=== PATIENT | male | born 1950 | race Caucasian/White ===

== ENCOUNTER 2018-07-16 04:36 | Inpatient (IN) | payer OTHER, MEDICARE ==
[~2018-07-16] VITALS: Ht 182.9 cm; Wt 122.0 kg
[2018-07-16 04:37] VITALS: BP 140/104
[2018-07-16] MEDS ORDERED: TRAMADOL 50 MG50 MG PO (04:50)
[2018-07-16] MEDS ORDERED: LASIX 40 MG TAB40 M2 PO (04:51)
[2018-07-16] MEDS ORDERED: TOPROL XL100 MG PO (04:52)
[2018-07-16] MEDS ORDERED: FLEXERIL PO (04:52)
[2018-07-16] MEDS ORDERED: QUINAPRIL 20 MG20 MG PO (04:53)
[2018-07-16] MEDS ORDERED: CRESTOR40 MG PO (04:53)
[2018-07-16] MEDS ORDERED: XARELTO20 MG PO (04:54)
[2018-07-16] MEDS ORDERED: ASPIR 8181 MG (04:55)
[2018-07-16 05:07] LABS: ABSOLUTE EOSINOPHILS 0.1 thou/uL (0.0-0.7); ABSOLUTE LYMPHOCYTES 2.2 thou/uL (0.8-5.3); ABSOLUTE MONOCYTES 0.3 thou/uL (0.0-1.2); ABSOLUTE NEUTROPHILS 6.6 thou/uL (1.6-8.1); BASOPHILS 0.5 %; EOSINOPHILS 1.5 %; HEMOGLOBIN 16.4 gm/dL (14.0-18.0); LYMPHOCYTES 23.4 %; MCH 31.5 pg (26.0-34.0); MCHC 34.2 g/dL (28.0-37.0); MONOCYTES 3.6 %; MPV 8.1 fl. (7.2-11.1); NUCLEATED RBCS 0 /100WBC; PLATELET COUNT* 212 thou/uL (150-400); RBC 5.22 mil/uL (4.50-6.00); RDW-CV 14.7 % (10.5-14.5); WBC 9.2 thou/uL (4.0-11.0)
[2018-07-16 05:19] LABS: INR 1.4; PROTIME 14.4 Seconds (9.20-11.50)
[2018-07-16 05:31] LABS: CALCIUM 9.1 mg/dL (8.5-10.1); CREATININE 1.5 mg/dL (0.6-1.3); POTASSIUM 3.6 mmol/L (3.5-5.1); TROPONIN-I LEVEL 0.09 ng/mL (<0.06)
[2018-07-16 05:35] LABS: ALBUMIN 3.3 g/dL (3.4-5.0); TOTAL BILIRUBIN 1.2 mg/dL (<0.1-1.0); TOTAL PROTEIN 6.8 g/dL (6.4-8.2)
[2018-07-16 08:37] LABS: URINE BILIRUBIN NEGATIVE (Negative); URINE BLOOD 1+ (Negative); URINE CLARITY CLEAR; URINE COLOR YELLOW; URINE GLUCOSE-RANDOM TRACE (Negative); URINE KETONES NEGATIVE (Negative); URINE LEUKOCYTES-REFLEX NEGATIVE (Negative); URINE NITRITE-REFLEX NEGATIVE (Negative); URINE PROTEIN 2+ (Negative); URINE SPECIFIC GRAVITY 1.025 (1.005-1.030); URINE UROBILINOGEN 0.2 E.U./dl (0.2-1.0)
[2018-07-16 08:50] LABS: SQUAMOUS 0-3 Few /LPF (0-3)
[2018-07-16 08:51] LABS: BACTERIA-REFLEX 1-9 Few /HPF (None Seen); CRYSTALS None Seen /LPF (None Seen); URINE RBC 3-10 Few /HPF (0-2); URINE WBC-REFLEX None Seen /HPF (0-5)
[2018-07-16 08:52] LABS: HYALINE CASTS 4-10 Moderate /LPF (None Seen); MUCUS 4-6 Moderate strn/LPF (None Seen)
[2018-07-16 10:00] VITALS: BP 132/78
[2018-07-16 10:15] VITALS: BP 133/115
[2018-07-16 12:00] VITALS: BP 127/74
--- NOTE | 2018-07-16 13:55 | EKG ---
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 : 1950 Requested By: Alma Corey Order Number: [id number] MD: Gerry Brandt Measurements Intervals [place] Rate: 129 P: 0 KS: 111 QRS: 88 QRSD: 165 T: 208 QT: 365 QTc: 535 Interpretive Statements atrial fibrillation LBBB Baseline wander in lead(s) V2 No previous ECG available for comparison Electronically Signed On 07-16-2018 13:54:57 CDT by Gerry Brandt [email or web address] <ELECTRONICALLY SIGNED> By: Gerry Brandt MD, [facility] 07/16/18 1354 0443 0443 Gerry Brandt MD, [facility] /EPI
--- NOTE | 2018-07-16 13:56 | EKG ---
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
[2018-07-16 16:00] VITALS: BP 128/89
[2018-07-16 20:00] VITALS: BP 130/85; BP 132/85
[2018-07-17] VITALS (14 sets, daily range): BP systolic 91–155; BP diastolic 67–106
[2018-07-17 04:53] LABS: ANION GAP 7 mmol/L (7-16); BUN 23 mg/dL (7-18); CALCIUM 8.3 mg/dL (8.5-10.1); CHLORIDE 104 mmol/L (98-107); CHOLESTEROL 92 mg/dL (<200); CO2 28 mmol/L (21-32); CREATININE 1.1 mg/dL (0.6-1.3); GLUCOSE 130 mg/dL (70-99); HDL CHOLESTEROL 30 mg/dL (>40); LDL CHOLESTEROL 48 mg/dL (<100); POTASSIUM 3.9 mmol/L (3.5-5.1); SODIUM 139 mmol/L (136-145); TC:HDL 3.1 Ratio (Not establshd); TRIGLYCERIDE 73 mg/dL (<150); VLDL 15 mg/dL (<40)
[2018-07-17 04:55] LABS: SERUM ASSESSMENT Clear
[2018-07-17 04:58] LABS: TROPONIN-I LEVEL 2.25 ng/mL (<0.06)
--- NOTE | 2018-07-17 13:22 | EKG ---
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: : 1950 Requested By: Gerry Brandt Order Number: [id number] Irais MD: Gerry Brandt Measurements Intervals [place] Rate: 99 P: PA: QRS: 73 QRSD: 174 T: 210 QT: 429 QTc: 551 Interpretive Statements Atrial fibrillation LBBB Prolonged QT interval Compared to ECG 07/16/2018 05:40:25 Ventricular premature complex(es) no longer present Electronically Signed On 07-17-2018 13:22:26 CDT by Gerry Brandt [email or web address] <ELECTRONICALLY SIGNED> By: Gerry Brandt MD, [facility] 07/17/18 1322 1027 1027 Gerry Brandt MD, [facility] /EPI
--- NOTE | 2018-07-17 17:41 | CARD ---
[address] [address] CARDIAC CATH REPORT Name: JOLENE RIGGS Room: [address] IN [facility]#: [id number] Admission: 07/16/18 Attend Phys: Augusto Guthrie, Discharge: Date of : 50 Report #: [id number] THIS REPORT FOR: //name// APPROVED REPORT Study performed: 07/17/2018 07:47:41 Patient Details Patient Status: In-Patient Room #: 215 The patient is a 67 year-old male Event Personnel Gerry Brandt Head Of Digital Advertising & Integration, Dayanara Nuñez RN Airplane Tube Builder, Lan Monahan (R) Monitor, Rolo Elam SUPERINTENDENT WATER [employer] SEW[employer] SYSTEMS Scrub Procedures Performed BALWINDER Place w/wo Plasty Single LAD Indication Non-STEMI , Atrial fibrillation, Dyspnea, Cardiomyopathy Risk Factors Tobacco History () Admission/Lab Medications/Medications given during procedure Glycoprotein IllbIlla Inhibitors, Heparin Unfract. Procedure Narrative The patient was brought electively to the Cardiac Catheterization Laboratory and was prepped and draped in a sterile manner. The right wrist was infiltrated with 1% Lidocaine subcutaneous anesthesia. A Slender Glidesheath sheath was inserted into the right radial artery. Coronary angiography was performed using coronary diagnostic catheters. The right coronary system was accessed and visualized with a Diagnostic JR4 catheter. The left coronary system was accessed and visualized with a Diagnostic JL 5 catheter. The left ventricle was accessed and visualized with a Diagnostic Angled Pigtail catheter. Left ventricular/Aortic Valve gradient assessed via catheter pullback. Left ventriculogram was performed in VERDIN projection. Closure device was deployed with a 6 Fr Vasc-Band Lng 27cm. The patient tolerated the procedure well and there were no complications [place] [address] CARDIAC CATH REPORT Name: JOLENE RIGGS LULY Room: [address]#: [id number] Admission: 07/16/18 Attend Phys: Augusto Guthrie, Discharge: Date of : 50 Report #: [id number] Intraoperative Conscious Sedation Sedation start time: 8:53 Case end Time: 9:37 Versed 2 mg Fluoro Time: 7.7 minutes Dose: DAP 250267 cGycm2 2259 mGy Contrast Type and Amount: Omnipaque 200 ml Coronary Angiography The patient's coronary anatomy is right dominant. Diagnostic Cath Left Main 0% stenosis LAD 80% proximal stenosis Circumflex 0% stenosis Right Coronary 50% distal stenosis noted Left Ventriculography The left ventricular ejection fraction is estimated to be 15-20%. There is 1+ mitral insufficiency. Hemodynamics The aortic pressure is 111/79 mmHg with a mean of 95 mmHg. The left ventricular pressure is 119/20 mmHg with a mean of mmHg. The left ventricular end diastolic pressure is 22 mmHg. Pullback from the left ventricle to the aorta revealed no gradient across the aortic valve. PCI Technique Lesion Anticoagulation was achieved with Heparin. bolus of iv aggrastat given Percutaneous coronary intervention was performed on the proximal left anterior descending artery segment. The lesion stenosis prior to intervention was 80% with MABEL 3 flow. A XB LAD 4.5 Guide Catheter was used to engage the lm ostium. A IG: BMW 190cm Interventional Guidewire was used to cross the lesion. BALLOON DILATION A Balloon catheter Trek RX 2.5 X 8 was inserted and inflated up to 18.00atm for 20seconds. Repeat angiography revealed the following post-dilatation results: 50% stenosis. STENT DEPLOYMENT A drug-eluting stent Xience Loree 3.0X12mm was inserted and inflated up to 12.00atm for 16seconds. Repeat angiography revealed the following post-stent deployment results: 0% [place] [address] CARDIAC CATH REPORT Name: JOLENE RIGGS LULY Room: [address]#: [id number] Admission: 07/16/18 Attend Phys: Augusto Guthrie, Discharge: Date of : 50 Report #: [id number] Inflation: 18.00atm for 18seconds. Additional Inflation: 20.00atm for 16seconds. Final angiography reveals 0 % stenosis with MABEL 3 flow. Conclusion 1. cad manifested by a 80% stenosis of the proximal lad and 50% stenosis of the distal rca 2. dilated cardiomyopathy with LVEF of less than 20% stenosis 3. permenent atrial fibrillation 4. successful placement of a drug eluting stent in the proximal lad Recommendations ICD placement Medications Administered Clopidogrel <ELECTRONICALLY SIGNED> By: Gerry Brandt MD, [facility] 07/17/18 174 174 1741Dpatrick Brandt MD, FAC /INF
[2018-07-18] VITALS (8 sets, daily range): BP systolic 102–151; BP diastolic 53–84
[2018-07-18 04:36] LABS: HEMATOCRIT 47.4 % (42.0-52.0); HEMOGLOBIN 15.9 gm/dL (14.0-18.0); MCH 30.6 pg (26.0-34.0); MCHC 33.6 g/dL (28.0-37.0); MCV 91.1 fL (80.0-100.0); MPV 8.7 fl. (7.2-11.1); NUCLEATED RBCS 0 /100WBC; PLATELET COUNT* 194 thou/uL (150-400); RDW-CV 14.5 % (10.5-14.5); WBC 10.7 thou/uL (4.0-11.0)
[2018-07-18 05:36] LABS: CALCIUM 9.2 mg/dL (8.5-10.1); CREATININE 0.9 mg/dL (0.6-1.3); POTASSIUM 3.8 mmol/L (3.5-5.1)
[2018-07-18 05:41] LABS: TROPONIN-I LEVEL 0.99 ng/mL (<0.06)
[2018-07-18 05:58] LABS: ABSOLUTE LYMPHOCYTES 1.1 thou/uL (0.8-5.3); ABSOLUTE NEUTROPHILS 9.6 thou/uL (1.6-8.1); PLATELET ESTIMATE ADEQUATE
[2018-07-18 05:59] LABS: ANISOCYTOSIS 1+; POIKILOCYTOSIS 1+; TOXIC GRANULATION Occasional
[2018-07-18] MEDS ORDERED: METFORMIN HCL500 MG PO (15:36)
[2018-07-18] MEDS ORDERED: NITROGLYCERIN0.4 MG SUBLING (15:37)
[2018-07-18] MEDS ORDERED: PLAVIX 75 MG TA75 M1 PO (15:38)
[2018-07-18] MEDS ORDERED: DIGOXIN125 MCG PO (15:41)
[2018-07-18] MEDS ORDERED: SPIRONOLACTONE25 MG PO (15:42)
--- NOTE | 2018-07-18 15:55 | EKG ---
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: : 1950 Requested By: Gerry Brandt Order Number: [id number] Irais MD: Juan Alberto Kaye Measurements Intervals [place] Rate: 100 P: ME: QRS: 90 QRSD: 176 T: 228 QT: 430 QTc: 555 Interpretive Statements Atrial fibrillation Left bundle-branch block Prolonged QT interval Baseline wander in lead(s) V4 Compared to ECG 07/17/2018 10:27:42 No significant changes noted Electronically Signed On 07-18-2018 15:55:04 CDT by Juan Alberto Kaye [email or web address] <ELECTRONICALLY SIGNED> By: Juan Alberto Kaye MD, [facility] 07/18/18 1555 0851 0851 Juan Alberto Kaye MD, [facility] /EPI
--- NOTE | 2018-07-18 17:25 | CON ---
[address] [address] CONSULTATION Name: ONEILJOLENESTACEY MAURICIO Room: [address] IN M.R.#: [id number] Admission: 07/16/18 Attend Phys: Augusto Guthrie, Discharge: Date of : 50 Report #: [id number] THIS REPORT FOR: //name// CC: [facility] physician/PCP Augusto Guthrie DATE OF SERVICE: 07/16/2018 HISTORY OF PRESENT ILLNESS: The patient is a 67-year-old white male who I was asked to see in the hospital today after he complained of being short of breath. No old records are available. The history is obtained from the patient and spouse was present. The patient states that back in 2009, he was short of breath. He was admitted to [facility]. He apparently was found to have atrial fibrillation and converted to sinus rhythm. He was placed on his current medications discharge. He has done well since that time. He apparently has had a stress test in the past. He has been followed by police records clerk at [facility]. He notes recently, he has had some back discomfort and bloating. He has had some increased shortness of breath. He actually went to the Emergency Room at [facility] five days ago and was sent home. He has an appointment to see his police records clerk later this month. However, last night, he had increasing shortness of breath. He has noticed some edema. He has been waking up at night short of breath. He does have a chronic cough. It is worse recently. No fever. His noticed that he was ashen last night and called the ambulance. He was diaphoretic. He was brought here to [facility]. Chest x-ray showed evidence of congestive heart failure. He was in atrial fibrillation and I was asked to see him for further evaluation and treatment. He denies any history of myocardial infarction, chest pain, palpitations, syncope, medical noncompliance. PAST MEDICAL HISTORY: He has had appendectomy. He has had his teeth removed. He has hypertension, hyperlipidemia, glucose intolerance. He used to be on metformin. CURRENT MEDICATIONS: Consist of metoprolol succinate 150 mg a day, quinapril 20 mg a day, aspirin 81 mg a day. He recently started on Xarelto 20 mg a day, furosemide 20 mg a day, Crestor 40 mg a day. ALLERGIES: He has no known drug allergies. FAMILY HISTORY: His mother and brother had heart disease. SOCIAL HISTORY: He is . He and his lived in [place]. 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 He smokes half pack of cigarettes a day. No alcohol abuse. REVIEW OF SYSTEMS: He is a large male, being 6 feet tall, 270 pounds. [place] [address] CONSULTATION Name: JOLENE RIGGS Room: [address] IN [facility]#: [id number] Admission: 07/16/18 Attend Phys: Augusto Guthrie, Discharge: Date of : 50 Report #: [id number] snore at night. He has a chronic cough. No history of bleeding, liver disease. He has had a kidney cyst in the past. No cancer. No psychiatric illness. PHYSICAL EXAMINATION: GENERAL: Revealed a large middle-aged male, lying in bed. He appeared in no acute distress. VITAL SIGNS: Blood pressure 130/80, pulse was initially 150. He is afebrile. HEENT: He is anicteric. Conjunctivae pink. Mucous membranes are moist. NECK: Veins nondistended. No carotid bruits. CHEST: Clear to auscultation. CARDIAC: Irregular rhythm. ABDOMEN: Obese. EXTREMITIES: Had no pitting edema. SKIN: Cool and dry. NEUROLOGIC: Nonfocal. LYMPHATIC: No adenopathy. MUSCULOSKELETAL: No joint effusion. RADIOLOGICAL DATA: His ECG on admission appeared to show atrial fibrillation with a left bundle branch block. His workup in the Emergency Room last night, he had a portable chest x-ray that showed cardiomegaly, pulmonary edema. LABORATORY WORK: Sodium 140, BUN 21, creatinine 1.5, glucose 271, SGOT 43, bilirubin 1.2, alkaline phosphate 72, SGPT 75, albumin 3.3. Troponin is 1.58. BNP 7524. White blood cell count 9.2, hemoglobin 16.4. IMPRESSION AND RECOMMENDATIONS: 1. Paroxysmal atrial fibrillation. Recommend checking thyroid function studies. The patient has a previous history of atrial fibrillation. At this time, I would switch the patient from metoprolol to sotalol. If he fails to convert, he might require cardioversion. I would continue anticoagulation with Xarelto. 2. Non-ST elevation myocardial infarction, possibly related to rapid atrial fibrillation. Consider cardiac catheterization in the future. 3. Hyperlipidemia. 4. Hypertension. The patient on a beta tino and CHRISTINA inhibitor. 5. Glucose intolerance. The patient has been on metformin in the past. 6. Tobacco abuse. 7. Chronic bronchitis. 8. Snoring at night. I would consider sleep apnea. <ELECTRONICALLY SIGNED> By: Gerry Brandt MD, [facility] 07/18/18 1725 1124 [id number] Carmencita Brandt MD, FACC /nt
[2018-07-19 04:00] VITALS: BP 108/58
[2018-07-19 08:00] VITALS: BP 116/84
[2018-07-19 10:12] LABS: INFLUENZA A ANTIGEN n (None Detect); INFLUENZA B ANTIGEN n (None Detect)
[2018-07-19 12:00] VITALS: BP 120/81
== END 2018-07-19 16:08 | disposition home or self-care (01) | DRG 246 ==
LOC: M.ERS 04:36 → M.TBA-ER 05:37 → M.2W 05:37
PROVIDERS: Emergency Medicine; Internal Medicine Cardiovascular Disease; ADMIT Family Medicine
PROC: B2111ZZ Fluoroscopy of Multiple Coronary Arteries using Low Osmolar Contrast (ICD-10-PCS; principal; 2018-07-17)
PROC: 027034Z Dilation of Coronary Artery, One Artery with Drug-eluting Intraluminal Device, Percutaneous Approach (ICD-10-PCS; principal; 2018-07-17)
PROC: 4A023N7 Measurement of Cardiac Sampling and Pressure, Left Heart, Percutaneous Approach (ICD-10-PCS; principal; 2018-07-17)
PROC: B2151ZZ Fluoroscopy of Left Heart using Low Osmolar Contrast (ICD-10-PCS; principal; 2018-07-17)
DX: I21.4 Non-ST elevation (NSTEMI) myocardial infarction (principal); J96.01 Acute respiratory failure with hypoxia; I42.0 Dilated cardiomyopathy; I25.10 Atherosclerotic heart disease of native coronary artery without angina pectoris; I10 Essential (primary) hypertension; E78.5 Hyperlipidemia, unspecified; I48.2 Chronic atrial fibrillation; E11.9 Type 2 diabetes mellitus without complications; J44.9 Chronic obstructive pulmonary disease, unspecified; F17.210 Nicotine dependence, cigarettes, uncomplicated; Z90.49 Acquired absence of other specified parts of digestive tract; Z79.01 Long term (current) use of anticoagulants; Z79.82 Long term (current) use of aspirin; Z79.899 Other long term (current) drug therapy; Z82.49 Family history of ischemic heart disease and other diseases of the circulatory system

== ENCOUNTER → 2018-08-10 | Outpatient (CLI) | payer OTHER, MEDICARE ==
[~2018-08-10] MED LIST: ASPIR 8181 MG; CRESTOR40 MG PO; DIGOXIN125 MCG PO; FLEXERIL PO; LASIX 40 MG TAB40 M2 PO; METFORMIN HCL500 MG PO; NITROGLYCERIN0.4 MG SUBLING; PLAVIX 75 MG TA75 M1 PO; QUINAPRIL 20 MG20 MG PO; SPIRONOLACTONE25 MG PO; TOPROL XL100 MG PO; TRAMADOL 50 MG50 MG PO; XARELTO20 MG PO
== END ==
LOC: M.LAB 11:32
DX: I48.2 Chronic atrial fibrillation (principal)

== ENCOUNTER → 2018-09-11 | Outpatient (CLI) | payer OTHER, MEDICARE ==
--- NOTE | 2018-09-11 16:37 | 2DMMODE ---
[place] [address] 2 D/M-MODE ECHOCARDIOGRAM Name: JOLENE RIGGS Room: [facility]#: [id number] Admission: 09/11/18 Attend Phys: Gerry Brandt MD Discharge: Date of : 50 Date of Service: 09/11/18 1637 Report #: [id number] THIS REPORT FOR: //name// APPROVED REPORT Study performed: 09/11/2018 14:06:21 EXAM: Comprehensive 2D, Doppler, and color-flow Echocardiogram Patient Location: Out-Patient BSA: 2.33 HR: 63 bpm BP: 106/72 mmHg Other Information Study Quality: Good Indications Cardiomyopathy 2D Dimensions IVSd: 14.37 (7-11mm) LVOT Diam: 20.72 (18-24mm) LVDd: 62.49 mm PWd: 11.95 (7-11mm) Ascending Ao: 35.24 (22-36mm) LVDs: 53.22 (25-40mm) Aortic Root: 37.32 mm Volumes Left Atrial Volume (Systole) LA ESV Index: 35.30 mL/m2 Aortic Valve AoV Peak Boo.: 2.68 m/s AO Peak Gr.: 28.66 mmHg LVOT Max P.17 mmHg AO Mean Gr.: 16.77 mmHg LVOT Mean P.65 mmHg LVOT Max V: 0.89 m/s AO V2 VTI: 50.80 cm LVOT Mean V: 0.59 m/s [place] (VTI): 1.09 cm2 LVOT V1 VTI: 16.37 cm AI Bureau: 1.87 m/s2 AI PHT: 663.62 ms Mitral Valve MV Decel. Time: 211.34 ms MV PHT: 61.29 ms MVA (PHT): 3.59 cm2 [place] [address] 2 D/M-MODE ECHOCARDIOGRAM Name: JOLENE RIGGS Room: [facility]#: [id number] Admission: 09/11/18 Attend Phys: Gerry Brandt MD Discharge: Date of : 50 Date of Service: 09/11/18 1637 Report #: [id number] TDI Medial E' Boo.: 0.07 m/s Lateral E' Boo.: 0.10 m/s Pulmonary Valve PV Peak Boo.: 1.33 m/s PV Peak Gr.: 7.03 mmHg Tricuspid Valve RAP Estimate: 5.00 mmHg TR Peak Gr.: 21.68 mmHg RVSP: 26.68 mmHg PA Pressure: 26.68 mmHg Left Ventricle Left ventricle is borderline dilated. There are segmental wall motion abnormalities with distal septal and anteroapical hypokinesis and inferobasilar akinesis. There is normal left ventricular wall thickness. Left ventricular systolic function is moderately decreased. LVEF is 40%. This study is not technically sufficient to allow evaluation of the LV diastolic function due to atrial fibrillation. Right Ventricle The right ventricle is normal size. The right ventricular systolic function is normal. Atria Left atrium is mildly dilated. The right atrium size is normal. Aortic Valve Moderate aortic valve sclerosis. Moderate aortic regurgitation. Mild to moderate aortic stenosis. Mitral Valve Mild mitral annular calcification. Mild mitral regurgitation. No evidence of mitral valve stenosis. Tricuspid Valve The tricuspid valve is normal in structure. Mild tricuspid regurgitation. Pulmonic Valve The pulmonary valve is normal in structure. Mild [place]mon[place] [address] 2 D/M-MODE ECHOCARDIOGRAM Name: JOLENE RIGGS LULY Room: [facility]#: [id number] Admission: 09/11/18 Attend Phys: Gerry Brandt MD Discharge: Date of : 50 Date of Service: 09/11/18 1637 Report #: [id number] Great Vessels The aortic root is normal in size. IVC is normal in size and collapses >50% with inspiration. Pericardium There is no pericardial effusion. <Conclusion> Left ventricle is borderline dilated. There is normal left ventricular wall thickness. Left ventricular systolic function is moderately decreased. LVEF is 40%. The right ventricle is normal size. Left atrium is mildly dilated. Moderate aortic valve sclerosis. Moderate aortic regurgitation. Mild to moderate aortic stenosis. Mild mitral annular calcification. Mild mitral regurgitation. The tricuspid valve is normal in structure. IVC is normal in size and collapses >50% with inspiration. There is no pericardial effusion. There are segmental wall motion abnormalities with distal septal and anteroapical hypokinesis and inferobasilar akinesis. <ELECTRONICALLY SIGNED> By: Hakeem Palacios MD, [facility] 09/11/18 1637 1637 163 Hakeem Palacios MD, FAC /INF
== END ==
LOC: M.CRD 13:48
DX: I08.8 Other rheumatic multiple valve diseases (principal)

== ENCOUNTER 2018-09-17 08:35 | Inpatient (IN) | payer OTHER, MEDICARE ==
[~2018-09-17] VITALS: Ht 182.9 cm; Wt 118.0 kg
[2018-09-17 08:38] VITALS: BP 140/87
[2018-09-17 09:01] LABS: ABSOLUTE EOSINOPHILS 0.2 thou/uL (0.0-0.7); ABSOLUTE LYMPHOCYTES 2.2 thou/uL (0.8-5.3); ABSOLUTE MONOCYTES 0.4 thou/uL (0.0-1.2); ABSOLUTE NEUTROPHILS 3.4 thou/uL (1.6-8.1); BASOPHILS 0.5 %; EOSINOPHILS 2.6 %; HEMATOCRIT 46.7 % (42.0-52.0); LYMPHOCYTES 35.6 %; MCHC 34.1 g/dL (28.0-37.0); MCV 90.7 fL (80.0-100.0); MPV 8.2 fl. (7.2-11.1); NUCLEATED RBCS 0 /100WBC; PLATELET COUNT* 200 thou/uL (150-400); POLYS 55.3 %; RBC 5.15 mil/uL (4.50-6.00); RDW-CV 15.1 % (10.5-14.5); WBC 6.1 thou/uL (4.0-11.0)
[2018-09-17 09:33] LABS: ANION GAP 13 mmol/L (7-16); BUN 14 mg/dL (7-18); CALCIUM 8.5 mg/dL (8.5-10.1); CHLORIDE 105 mmol/L (98-107); CO2 25 mmol/L (21-32); CREATININE 0.9 mg/dL (0.6-1.3); GLUCOSE 166 mg/dL (70-99); POTASSIUM 4.1 mmol/L (3.5-5.1); SODIUM 143 mmol/L (136-145)
[2018-09-17 09:43] LABS: ALBUMIN 3.6 g/dL (3.4-5.0); ALKALINE PHOSPHATASE 72 U/L (46-116); LIPASE 308 U/L (73-393); NT-PRO BRAIN NAT PEPTIDE 1690 pg/mL (<300); SGOT 15 U/L (15-37); SGPT 27 U/L (30-65); TOTAL BILIRUBIN 0.6 mg/dL (<0.1-1.0); TOTAL PROTEIN 7.1 g/dL (6.4-8.2); TROPONIN-I LEVEL <0.06 ng/mL (<0.06)
[2018-09-17 14:44] VITALS: BP 121/60
[2018-09-17 15:31] VITALS: BP 138/56
--- NOTE | 2018-09-17 18:03 | NUR ---
ASSUMED PT CARE AT 1500. PT FROM ER. AOX4, UP AD ESTHER, O2 SAT 90'S RA. ADMISSION ASSESSMENT DONE. TELE IN PLACED. TRACING AFIB, KATERIN ON TELE. EKG DONE. HEART RATE GOES ON 30'S- 60'S. PT CAME FOR EXTERNAL DEFIB GOING OFF. PT HAS R AC IV SL INTACT. VSS, ASSESSMENT CHARTED. HOURLY ROUNDING. GET SITUATED TO ROOM. CALL LIGHT WITHIN REACH. WILL CONTINUE TO MONITOR.
[2018-09-17 20:00] VITALS: BP 122/61
[2018-09-18] VITALS: BP 101/32; BP 133/53
[2018-09-18 04:00] VITALS: BP 110/50; BP 111/54
[2018-09-18 05:32] LABS: ABSOLUTE EOSINOPHILS 0.2 thou/uL (0.0-0.7); ABSOLUTE LYMPHOCYTES 2.5 thou/uL (0.8-5.3); ABSOLUTE MONOCYTES 0.5 thou/uL (0.0-1.2); BASOPHILS 0.4 %; EOSINOPHILS 2.8 %; HEMATOCRIT 43.2 % (42.0-52.0); HEMOGLOBIN 14.8 gm/dL (14.0-18.0); LYMPHOCYTES 40.1 %; MCH 31.4 pg (26.0-34.0); MCHC 34.3 g/dL (28.0-37.0); MCV 91.5 fL (80.0-100.0); MONOCYTES 8.2 %; MPV 8.3 fl. (7.2-11.1); NUCLEATED RBCS 0 /100WBC; PLATELET COUNT* 168 thou/uL (150-400); POLYS 48.5 %; RBC 4.72 mil/uL (4.50-6.00); RDW-CV 14.8 % (10.5-14.5); WBC 6.2 thou/uL (4.0-11.0)
[2018-09-18 05:36] LABS: CALCIUM 8.6 mg/dL (8.5-10.1); CREATININE 0.9 mg/dL (0.6-1.3); MAGNESIUM 2.2 mg/dL (1.8-2.4); POTASSIUM 4.3 mmol/L (3.5-5.1)
--- NOTE | 2018-09-18 05:44 | NUR ---
ASSUMED CARE OF PT AFTER REPORT AT 1930. PT A&OX4. VSS. PHYSICAL ASSESSMENT COMPLETED AND CHARTED. PT ON RA. PT TRACING AFIB/AFLUTTER/PVC ON TELE. PT HR 30'S-50'S. PT UPADLIB TO RESTROOM. PT DENIES ANY PAIN OR DISCOMFORT. PT RESTED WELL ON BED. CALL LIGHT WITHIN REACH.
--- NOTE | 2018-09-18 09:40 | CON ---
[address] [address] CONSULTATION Name: JOLENE RIGGS Room: [address] M.R.#: [id number] Admission: 09/17/18 Attend Phys: Brandyn Wild MD Discharge: Date of : 50 Report #: [id number] THIS REPORT FOR: //name// CC: Rolo Seth Mouse DO Gerry Brandt MD [facility] Brandyn Wild CARDIOLOGY CONSULTATION INDICATION: Cardiomyopathy and atrial fibrillation. HISTORY OF PRESENT ILLNESS: The patient is a very pleasant 67-year-old gentleman who is seen in the Emergency Room today after noting his LifeVest has alarmed multiple times this morning. The patient was asymptomatic at these times and disabled the LifeVest in order to avoid unnecessary shocks. The patient is in atrial fibrillation. In the Emergency Room, his heart rate has been noted to be both fast and slow on occasions. He has a history of cardiomyopathy dating back many years. He was recently seen in the hospital in July of this year with non-ST elevation myocardial infarction and exacerbation of his heart failure. He underwent percutaneous coronary intervention with a stent placed to a proximal LAD lesion. No other occlusive disease was noted at that time. His ejection fraction was felt to be in the neighborhood of 15%. More recent echocardiogram showed some improvement, although he still has fairly significant left ventricular systolic dysfunction. Presently, he denies any chest pain. He is not having shortness of breath, orthopnea or paroxysmal nocturnal dyspnea. PAST MEDICAL HISTORY: 1. Cardiomyopathy with reduced left ventricular systolic function. 2. Coronary artery disease with recent percutaneous coronary intervention to the proximal left anterior descending coronary artery. 3. Hypertension. 4. Dyslipidemia. 5. Type 2 diabetes mellitus. FAMILY HISTORY: The patient's mother and brother have heart disease. SOCIAL HISTORY: The patient is . He smokes half pack of cigarettes daily. He does not abuse alcohol. ALLERGIES: None documented. HOME MEDICATIONS: Plavix 75 mg daily, digoxin 0.125 mg daily, furosemide [address] [place] [address] CONSULTATION Name: JOLENE RIGGS Room: [address] M.R.#: [id number] Admission: 09/17/18 Attend Phys: Brandyn Wild MD Discharge: Date of : 50 Report #: [id number], metformin 500 mg b.i.d., Toprol-XL 100 mg daily, Nitrostat p.r.n., Accupril 20 mg daily, Xarelto 20 mg at bedtime, Crestor 40 mg daily, spironolactone 25 mg daily. PHYSICAL EXAMINATION: VITAL SIGNS: Stable. Blood pressure 122/69, pulse is in the 50s and 60s and irregular. GENERAL: This is a moderately obese, pleasant white male, in no distress. Mood and affect appropriate. HEENT: The patient is wearing glasses. Extraocular muscles intact. Mucous membranes are moist. NECK: Shows no jugular venous distention. There are no carotid bruits. CHEST: Reveals diminished breath sounds without wheezes or rales. CARDIOVASCULAR: Reveals irregular rhythm without gallop or murmur. ABDOMEN: Reveals a protuberant abdomen, soft and nontender. EXTREMITIES: Shows no edema. Peripheral pulses 2+ and palpable. SKIN: Warm and dry. LABORATORY DATA: EKG shows atrial fibrillation with controlled ventricular response rate with bundle branch block. I do not appreciate acute ST or T-wave abnormalities. Initial troponin is less than 0.06. Chest x-ray shows cardiomegaly without acute pulmonary edema. IMPRESSION AND RECOMMENDATIONS: 1. LifeVest alarm likely due to atrial fibrillation with rapid ventricular response. We will bring the patient in for telemetry monitoring overnight. If the patient is truly having significant slow and fast episodes, may need to consider pacing plus minus a defibrillator. 2. Coronary artery disease, presently stable. Continue dual antiplatelet therapy. 3. Cardiomyopathy, likely nonischemic. I believe he has had symptoms and been treated for cardiomyopathy for at least the past 9 years. We will continue heart failure medications as outlined above. 4. Hypertension. Blood pressure adequately controlled at this point in time. 5. Dyslipidemia. Continue Crestor at current dose. <ELECTRONICALLY SIGNED> By: Juan Alberto Kaye MD, FACC 09/18/18 0940 1407 [id number] Kaye MD, FACC /nt
--- NOTE | 2018-09-18 11:30 | NUR ---
MET WITH PT TO DISCUSS HOME SITUATION/DC PLANNING. PT LIVES WITH . 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 DENIES DC NEEDS. WILL FOLLOW
[2018-09-18 12:26] VITALS: BP 116/42
--- NOTE | 2018-09-18 15:32 | EKG ---
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: Micky CARRERA : 1950 Requested By: Justyn Pang Order Number: [id number] Reading MD: Hakeem Palacios Measurements Intervals [place] Rate: 64 P: CA: QRS: 40 QRSD: 172 T: 234 QT: 414 QTc: 427 Interpretive Statements Atrial fibrillation Ventricular premature complex Left bundle branch block Baseline wander in lead(s) V5,V6 Compared to ECG 07/18/2018 08:51:51 Ventricular premature complex(es) now present Prolonged QT interval no longer present Electronically Signed On 09-18-2018 15:31:58 CDT by Hakeem Palacios [email or web address] <ELECTRONICALLY SIGNED> By: Hakeem Palacios MD, [facility] 09/18/18 1531 0839 0839 Hakeem Palacios MD, [facility] /EPI
--- NOTE | 2018-09-18 15:38 | EKG ---
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 : 1950 Requested By: Justyn Pang Order Number: [id number] MD: Hakeem Palacios Measurements Intervals [place] Rate: 38 P: IN: QRS: 19 QRSD: 122 T: 180 QT: 454 QTc: 361 Interpretive Statements Atrial fibrillation with slow response Nonspecific intraventricular conduction delay Anterior infarct, age indeterminate Lateral leads are also involved Compared to ECG 07/18/2018 08:51:51 Intraventricular conduction delay now present Left bundle-branch block no longer present Prolonged QT interval no longer present Electronically Signed On 09-18-2018 15:38:27 CDT by Hakeem Palacios [email or web address] <ELECTRONICALLY SIGNED> By: Hakeem Palacios MD, [facility] 09/18/18 1538 1532 1532 Hakeem Palacios MD, [facility] /EPI
[2018-09-18 16:43] VITALS: BP 116/70
--- NOTE | 2018-09-18 18:43 | NUR ---
ASSUMED PT CARE AT 0700, PT A&O X4, UP AD ESTHER, VSS, RA, PLANT ATTENDANT TRACING AFIB WITH BBB AND MULTIPLE PVCS. PT BRADYCARDIC WITH HR LOW 20'S, DR HAIRSTON AND CARDIOLOGY AWARE, PT TO HAVE PACEMAKER PLACED, PT SYMPTOMATIC. PT TO BE NPO AFTER MIDNIGHT FOR PROCEDURE, HOURLY ROUNDING COMPLETED.
[2018-09-18 20:00] VITALS: BP 111/71
[2018-09-19] VITALS: BP 124/50
[2018-09-19 04:00] VITALS: BP 135/63
--- NOTE | 2018-09-19 05:49 | NUR ---
ASSUMED CARE OF PT AFTER REPORT AT 1930. PT A&OX4. VSS. PHYSICAL ASSESSMENT COMPLETED AND CHARTED. PT ON RA. PT TRACING AFIB/PVCS/VTACH ON TELE. PT HR 30'S-170'S.DENIES ANY CHEST PAIN OR SOA. PT UPADLIB TO RESTROOM. INSTRUCTED ON NPO POST MIDNIGHT FOR POSSIBLE ICD OR PACEMAKER PLACEMENT. CALL LIGHT WITHIN REACH.
[2018-09-19 12:11] VITALS: BP 93/63
[2018-09-19] MEDS ORDERED: ASPIRIN81 M2 PO (14:58)
[2018-09-19] MEDS ORDERED: METOPROLOL SUCC25 M1 PO (14:58)
[2018-09-19 15:49] VITALS: BP 119/44
[2018-09-19 17:19] VITALS: BP 119/44
--- NOTE | 2018-09-19 18:54 | NUR ---
ASSUMED PT CARE AT 0700, A&O X4, VSS, RA, FENCE RIDER TRACING AFIB, BBB, AND MULTIPLE PVC'S, PT REMAINS ASYMPTOMATIC. PT TO DC HOME THIS SHIFT PER DR RODRIGUEZ WITH [facility] D/T REQUIRING 3 FULL MONTHS TREATMENT AFTER ACUTE CORONARY SYNDROME INCLUDING APPROPRIATE HEART FAILURE MEDICATIONS PER [facility] GUIDLINES. PT EDUCATED ON THIS AND STATES UNDERSTANDING, F/U APPTS WITH DR PIPER AND F/U ECHO MADE FOR PT. PT DISCHARGED WITH SPOUSE AND NURSING STAFF VIA WHEELCHAIR. HOURLY ROUNDING COMPLETED, IV AND FENCE RIDER REMOVED.
== END 2018-09-19 18:00 | disposition home or self-care (01) | DRG 309 ==
LOC: M.ERS 08:35 → M.2W 10:03 → M.TBA-ER 10:03 → M.2W 15:13
PROVIDERS: Emergency Medicine Emergency Medical Services; ADMIT Family Medicine
DX: I48.91 Unspecified atrial fibrillation (principal); D68.59 Other primary thrombophilia; I50.22 Chronic systolic (congestive) heart failure; I42.9 Cardiomyopathy, unspecified; I25.10 Atherosclerotic heart disease of native coronary artery without angina pectoris; E78.5 Hyperlipidemia, unspecified; F17.210 Nicotine dependence, cigarettes, uncomplicated; J44.9 Chronic obstructive pulmonary disease, unspecified; I11.0 Hypertensive heart disease with heart failure; I49.5 Sick sinus syndrome; I25.2 Old myocardial infarction; Z95.5 Presence of coronary angioplasty implant and graft; Z82.49 Family history of ischemic heart disease and other diseases of the circulatory system; Z79.82 Long term (current) use of aspirin; Z79.899 Other long term (current) drug therapy

== ENCOUNTER → 2018-11-14 | Outpatient (CLI) | payer OTHER, MEDICARE ==
[~2018-11-14] VITALS: Ht 182.9 cm; Wt 112.5 kg
[2018-11-14] VITALS (7 sets, daily range): BP systolic 119–141; BP diastolic 53–85
[~2018-11-14] MED LIST changes: +ASPIRIN81 M2 PO; +METOPROLOL SUCC25 M1 PO; +TOPROL XL25 MG PO
[2018-11-14 10:53] LABS: HEMATOCRIT 46.6 % (42.0-52.0); HEMOGLOBIN 15.8 gm/dL (14.0-18.0); MCH 31.2 pg (26.0-34.0); MCHC 33.9 g/dL (28.0-37.0); MCV 92.1 fL (80.0-100.0); RBC 5.06 mil/uL (4.50-6.00); WBC 8.1 thou/uL (4.0-11.0)
[2018-11-14 11:06] LABS: ANION GAP 11 mmol/L (7-16); BUN 18 mg/dL (7-18); CALCIUM 8.8 mg/dL (8.5-10.1); CHLORIDE 105 mmol/L (98-107); CO2 25 mmol/L (21-32); CREATININE 0.8 mg/dL (0.6-1.3); GLUCOSE 119 mg/dL (70-99); POTASSIUM 4.8 mmol/L (3.5-5.1); SODIUM 141 mmol/L (136-145)
[2018-11-14 11:07] LABS: APTT 25.9 Seconds (25.0-31.3); PROTIME 10.7 Seconds (9.20-11.50)
[2018-11-14 11:12] LABS: ALBUMIN 3.6 g/dL (3.4-5.0); ALKALINE PHOSPHATASE 66 U/L (46-116); CHOLESTEROL 117 mg/dL (<200); HDL CHOLESTEROL 31 mg/dL (>40); LDL CHOLESTEROL 66 mg/dL (<100); SERUM ASSESSMENT Clear; SGOT 27 U/L (15-37); SGPT 28 U/L (30-65); TC:HDL 3.8 Ratio (Not establshd); TOTAL BILIRUBIN 0.8 mg/dL (<0.1-1.0); TOTAL PROTEIN 7.5 g/dL (6.4-8.2); TRIGLYCERIDE 103 mg/dL (<150); VLDL 21 mg/dL (<40)
--- NOTE | 2018-11-14 11:16 | EKG ---
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: : 1950 Requested By: Juan Alberto Kaye Order Number: [id number] Reading MD: Juan Alberto Kaye Measurements Intervals [place] Rate: 56 P: [place]: QRS: -10 QRSD: 171 T: 186 QT: 470 QTc: 454 Interpretive Statements Atrial fibrillation Left bundle-branch block Compared to ECG 09/17/2018 15:32:33 Myocardial infarct finding no longer present Electronically Signed On 11-14-2018 11:16:40 CDT by Juan Alberto Kaye [email or web address] <ELECTRONICALLY SIGNED> By: Juan Alberto Kaye MD, [facility] 11/14/18 1116 1052 52 Juan Alberto Kaye MD, FACC /EPI
--- NOTE | 2018-12-12 17:13 | CARD ---
[address] [address] CARDIAC CATH REPORT Name: JOLENE RIGGS Room: [facility]#: [id number] Admission: 11/14/18 Attend Phys: Juan Alberto Kaye MD Discharge: Date of : 50 Report #: [id number] THIS REPORT FOR: //name// ADDENDUM APPROVED REPORT Study performed: 11/14/2018 10:15:55 Patient Status: Out-Patient Room #: Event Personnel: Juan Alberto Kaye Estate Conservator, Dayanara Nuñez RN RN, Maritr Stokes SWITCHBOARD RECEPTIONIST Monitor, Lan Monahan (R) Scrub, Cassie Wade RTR Scrub Exam: single-chamber ICD placement. Indications: ischemic cardiomyopathy. The patient is a 68 year-old male with a history of ischemic cardiomyopathy. Intraoperative Conscious Sedation Sedation start time: 11:39 Case end Time: 12:16 Fentanyl 100 mcg Versed 4 mg Implanted Devices: Biotronik Intica 7 VRT DX, model #839301, serial #[id number] single-chamber ICD generator. Biotronik Plexa ProMRI DF1 S DX 65/15, model #968285, serial #[id number] pacing defibrillator lead. Procedure After informed consent was obtained the patient was brought to the interventional radiology lab. The area of the left chest was prepped and draped in sterile fashion. Local anesthesia was achieved with 1% lidocaine. Next after an initial incision was made a device pocket was formed over the left pectoralis muscle using electrocautery and blunt dissection. A venogram of the left arm was obtained to show patency and location of the left subclavian vein. A micropuncture kit was utilized to access the subclavian vein and ultimately a safety J guidewire advanced to the area of the right atrium under fluoroscopic guidance. Next a 7 Estonian tear-away introducer was advanced over the guidewire. The guidewire and dilator were removed as a pacing defibrillator lead was advanced to a secure position within the right ventricular apex under fluoroscopic guidance. The lead was actively fixed. Thresholds were checked and deemed to be satisfactory. Atrial sensing was checked and deemed to be adequate. There was no diaphragmatic stimulation with maximum output pacing. The tear-away introducer was removed. [place] [address] CARDIAC CATH REPORT Name: JOLENE RIGGS Room: [facility]#: [id number] Admission: 11/14/18 Attend Phys: Juan Alberto Kaye MD Discharge: Date of : 50 Report #: [id number] assured in the pacing defibrillator lead the lead the lead was secured within the device pocket using interrupted stitches of 2-0 silk suture and the designated cuff. The device pocket was then flushed with antibiotic solution. Next the pacing defibrillator lead was attached to the single-chamber pacing defibrillator generator. The pulse generator and redundant lead were then placed within the device pocket. The deep tissues were closed using interrupted stitches of 2-0 Vicryl. The skin incision was then closed with a single subcutaneous stitch of 4-0 Vicryl. Several Steri-Strips were placed across the incision. A sterile Telfa dressing was then covered with a Tegaderm. The patient tolerated the procedure well and without complication. Findings The sensed R-wave was 11.5 mV. The threshold was 1.3 V at 0.40 ms. The ventricular pacing impedance was 761 ohms. Mode VVI at a rate of 40 bpm as backup pacing. Conclusion 1. Ischemic cardiomyopathy. 2. Successful placement of a single lead pacing ICD for primary prevention. 3. Venogram of left upper extremity showing patency of the left subclavian vein. Recommendations 1. Follow-up site check in one week. 2. Follow-up device interrogation in one to 2 months. <ELECTRONICALLY SIGNED> By: Juan Alberto Kaye MD, [facility] 12/12/18 1713 12 171Micoracio Kaye MD, FACC /INF
== END | disposition home or self-care (01) ==
LOC: M.CL 10:04
PROVIDERS: Internal Medicine Cardiovascular Disease
DX: I25.5 Ischemic cardiomyopathy (principal); Z45.02 Encounter for adjustment and management of automatic implantable cardiac defibrillator; I48.91 Unspecified atrial fibrillation; E11.9 Type 2 diabetes mellitus without complications; I50.20 Unspecified systolic (congestive) heart failure; I25.10 Atherosclerotic heart disease of native coronary artery without angina pectoris; J44.9 Chronic obstructive pulmonary disease, unspecified; F17.210 Nicotine dependence, cigarettes, uncomplicated; Z79.899 Other long term (current) drug therapy; Z98.890 Other specified postprocedural states; Z79.01 Long term (current) use of anticoagulants

== ENCOUNTER 2019-01-08 19:21 | Inpatient (IN) | payer OTHER, MEDICARE ==
[~2019-01-08] VITALS: Ht 182.9 cm; Wt 116.1 kg
[2019-01-08 19:32] VITALS: BP 138/78
[2019-01-08 19:42] LABS: ABSOLUTE EOSINOPHILS 0.2 thou/uL (0.0-0.7); ABSOLUTE LYMPHOCYTES 3.5 thou/uL (0.8-5.3); ABSOLUTE MONOCYTES 0.6 thou/uL (0.0-1.2); ABSOLUTE NEUTROPHILS 5.3 thou/uL (1.6-8.1); BASOPHILS 0.5 %; HEMATOCRIT 46.3 % (42.0-52.0); HEMOGLOBIN 15.8 gm/dL (14.0-18.0); LYMPHOCYTES 36.3 %; MCH 31.5 pg (26.0-34.0); MCHC 34.2 g/dL (28.0-37.0); MCV 92.1 fL (80.0-100.0); MONOCYTES 6.5 %; MPV 7.6 fl. (7.2-11.1); NUCLEATED RBCS 0 /100WBC; PLATELET COUNT* 223 thou/uL (150-400); POLYS 54.7 %; RBC 5.02 mil/uL (4.50-6.00); RDW-CV 14.3 % (10.5-14.5); WBC 9.6 thou/uL (4.0-11.0)
[2019-01-08 19:49] LABS: ANION GAP 11 mmol/L (7-16); BUN 15 mg/dL (7-18); CALCIUM 9.1 mg/dL (8.5-10.1); CHLORIDE 104 mmol/L (98-107); CO2 24 mmol/L (21-32); CREATININE 1.1 mg/dL (0.6-1.3); GLUCOSE 165 mg/dL (70-99); POTASSIUM 3.9 mmol/L (3.5-5.1); SODIUM 139 mmol/L (136-145)
[2019-01-08 19:52] LABS: INR 1.3; PROTIME 13.2 Seconds (9.20-11.50)
[2019-01-08 20:00] LABS: ALBUMIN 3.9 g/dL (3.4-5.0); ALKALINE PHOSPHATASE 66 U/L (46-116); NT-PRO BRAIN NAT PEPTIDE 1270 pg/mL (<300); SGOT 20 U/L (15-37); SGPT 31 U/L (30-65); TOTAL BILIRUBIN 0.5 mg/dL (<0.1-1.0); TOTAL PROTEIN 7.8 g/dL (6.4-8.2); TROPONIN-I LEVEL <0.06 ng/mL (<0.06)
[2019-01-08 21:00] VITALS: BP 139/61
[2019-01-08 21:30] VITALS: BP 128/69
[2019-01-08 22:45] LABS: URINE BILIRUBIN NEGATIVE (Negative); URINE BLOOD 1+ (Negative); URINE CLARITY CLEAR; URINE COLOR YELLOW; URINE GLUCOSE-RANDOM NEGATIVE (Negative); URINE KETONES NEGATIVE (Negative); URINE LEUKOCYTES-REFLEX NEGATIVE (Negative); URINE NITRITE-REFLEX NEGATIVE (Negative); URINE PROTEIN 1+ (Negative); URINE SPECIFIC GRAVITY >= 1.030 (1.005-1.030)
[2019-01-08 23:04] LABS: MUCUS 0-3 Light strn/LPF (None Seen); SQUAMOUS >10 Many /LPF (0-3)
[2019-01-08 23:05] LABS: BACTERIA-REFLEX 1-9 Few /HPF (None Seen); CRYSTALS None Seen /LPF (None Seen); HYALINE CASTS 4-10 Moderate /LPF (None Seen); URINE RBC 0-2 Rare /HPF (0-2)
[2019-01-08 23:06] LABS: URINE WBC-REFLEX 0-5 Rare /HPF (0-5)
[2019-01-09] VITALS: BP 117/47
[2019-01-09 04:00] VITALS: BP 130/50
--- NOTE | 2019-01-09 04:53 | NUR ---
PT ADMITTED TO UNIT AT 2119, AT BEDSIDE. A&OX 4, MAINTAINED O2 SATS ON RA, VSS. NO C/O OF PAIN OR DISCOMFORT NOTED BY PT, RESTING WELL IN BED CALL LIGHT WITHIN REACH.
[2019-01-09 08:00] VITALS: BP 140/65
--- NOTE | 2019-01-09 09:33 | EKG ---
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[place] : 1950 Requested By: Alma Corey Order Number: [id number] MD: Juan Alberto Kaye Measurements Intervals [place] Rate: 79 P: 64 [place]: 189 QRS: 32 QRSD: 176 T: 181 QT: 422 QTc: 484 Interpretive Statements Sinus rhythm Left bundle-branch block Compared to ECG 11/14/2018 10:53:58 Left ventricular hypertrophy now present Atrial fibrillation no longer present Electronically Signed On 01-09-2019 9:33:01 CDT by Juan Alberto Kaye [email or web address] <ELECTRONICALLY SIGNED> By: Juan Alberto Kaye MD, FACC 01/09/1933 28 28 Juan Alberto Kaye MD, FAC /EPI
--- NOTE | 2019-01-09 09:33 | EKG ---
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
[2019-01-09 12:00] VITALS: BP 122/59
--- NOTE | 2019-01-09 15:11 | NUR ---
Pt is A&O. Resides at home with his . Active and independent. No DME. No hx of HH or SNF. Goal is home at mi. Following.
--- NOTE | 2019-01-09 15:45 | NUR ---
ASSUMED PT CARE AT 0800, AOX4, UP AD ESTHER, O2 SAT 90'S RA. TRACING SR, BBB, 1ST DEGREE ON TELE. PT DENIES PAIN. PT FOR ACCU CHECK. VSS, AM ASSESSMENT CHARTED, MEDS GIVEN PER MAR, CALL LIGHT WITHIN REACH, WILL CONTINUE TO MONITOR,
[2019-01-09 16:29] VITALS: BP 129/69
[2019-01-09 19:57] VITALS: BP 138/79
[2019-01-10 00:14] VITALS: BP 138/82
[2019-01-10 04:22] VITALS: BP 123/64
--- NOTE | 2019-01-10 05:22 | NUR ---
PT IS ABLE TO COMMUNICATE HIS NEEDS TO STAFF EFFECTIVELY. HE HAS DENIED THE NEED FOR PAIN MEDICATION UP TO THIS TIME. POSSIBLE DISCHARGE LATER TODAY.
[2019-01-10 07:30] VITALS: BP 135/64
--- NOTE | 2019-01-10 09:18 | NUR ---
ASSUMED PT CARE AT 0730, AOX4, UP AD ESTHER, O2 SAT 90'S. TRACING SB, BBB, 1ST DEGREE ON TELE. PT DENIES PAIN. PT FOR DISCHARGE. VSS, AM ASSESSENT CHARTED, MEDS GIVEN PER MAR, CALL LIGHT WITHIN REACH, WILL CONTINUE TO MONITOR.
[2019-01-10] MEDS ORDERED: PACERONE 200 M200 M1 PO (09:26)
[2019-01-10 09:28] VITALS: BP 135/64
--- NOTE | 2019-01-10 10:39 | EKG ---
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
[2019-01-10 11:53] VITALS: BP 120/64
== END 2019-01-10 12:25 | disposition home or self-care (01) | DRG 310 ==
LOC: M.ERS 19:21 → M.2W 20:18 → M.TBA-ER 20:18 → M.2W 20:39
PROVIDERS: Emergency Medicine; ADMIT Internal Medicine
DX: I48.0 Paroxysmal atrial fibrillation (principal); I25.5 Ischemic cardiomyopathy; I25.10 Atherosclerotic heart disease of native coronary artery without angina pectoris; E11.9 Type 2 diabetes mellitus without complications; E78.5 Hyperlipidemia, unspecified; F17.210 Nicotine dependence, cigarettes, uncomplicated; I50.9 Heart failure, unspecified; I11.0 Hypertensive heart disease with heart failure; Z79.899 Other long term (current) drug therapy; Z82.49 Family history of ischemic heart disease and other diseases of the circulatory system; Z95.810 Presence of automatic (implantable) cardiac defibrillator; Z95.5 Presence of coronary angioplasty implant and graft

== ENCOUNTER → 2019-05-08 | Outpatient (CLI) | payer OTHER, MEDICARE ==
[~2019-05-08] MED LIST changes: +PACERONE 200 M200 M1 PO
== END ==
LOC: M.LAB 15:29
DX: I48.0 Paroxysmal atrial fibrillation (principal)

== ENCOUNTER → 2019-05-24 | Outpatient (CLI) | payer OTHER, MEDICARE ==
[2019-05-24 13:14] VITALS: BP 112/71
[2019-05-24 13:20] VITALS: BP 109/50
[2019-05-24 13:23] VITALS: BP 115/73
[2019-05-24 13:24] LABS: CALCIUM 8.6 mg/dL (8.5-10.1); CREATININE 1.1 mg/dL (0.6-1.3); POTASSIUM 4.5 mmol/L (3.5-5.1)
[2019-05-24 13:28] LABS: ALBUMIN 4.2 g/dL (3.4-5.0); TOTAL BILIRUBIN 0.8 mg/dL (<0.1-1.0)
[2019-05-24 14:21] VITALS: BP 116/57
--- NOTE | 2019-05-25 07:42 | CARD ---
[address] [address] CARDIAC CATH REPORT Name: JOLENE RIGGS Room: [facility]#: [id number] Admission: 05/24/19 Attend Phys: Juan Alberto Kaye MD Discharge: Date of : 50 Report #: [id number] THIS REPORT FOR: //name// cc: Rolo Núñez Brad DO ~ THIS REPORT FOR: //name// CC: Rolo Kaye PROCEDURE: DC cardioversion. INDICATION: Persistent atrial fibrillation. DESCRIPTION OF PROCEDURE: After informed consent was obtained, the patient was brought to the cardiac holding area. The patient was given 4 mg of intravenous Versed and 100 mg of intravenous fentanyl for moderate sedation. Once the patient was adequately sedated, he was cardioverted to normal sinus rhythm with a single biphasic shock of 300 joules. The patient tolerated the procedure well without complication. IMPRESSION: 1. Persistent atrial fibrillation. 2. Successful direct current cardioversion to normal sinus rhythm as outlined above. <ELECTRONICALLY SIGNED> By: Juan Alberto Kaye MD, FACC 05/25/19 0742 1323 [address] Lela Kaye MD, FACC /nt
== END | disposition home or self-care (01) ==
LOC: M.CL 11:09
PROVIDERS: Internal Medicine Cardiovascular Disease
DX: I48.19 Other persistent atrial fibrillation (principal); I11.0 Hypertensive heart disease with heart failure; I50.20 Unspecified systolic (congestive) heart failure; I42.9 Cardiomyopathy, unspecified; E11.9 Type 2 diabetes mellitus without complications; Z98.890 Other specified postprocedural states; Z79.899 Other long term (current) drug therapy; Z79.01 Long term (current) use of anticoagulants

== ENCOUNTER → 2019-06-06 | Outpatient (CLI) | payer OTHER, MEDICARE ==
[2019-06-06 12:13] LABS: CREATININE 1.1 mg/dL (0.6-1.3)
== END ==
LOC: M.CT 05-08 15:58 → M.LAB 11:53 → M.CT 13:00
PROVIDERS: Registered Nurse
DX: Z01.812 Encounter for preprocedural laboratory examination (principal); I25.41 Coronary artery aneurysm; I71.9 Aortic aneurysm of unspecified site, without rupture; I51.7 Cardiomegaly; I48.91 Unspecified atrial fibrillation; J98.4 Other disorders of lung; N28.1 Cyst of kidney, acquired

== ENCOUNTER → 2019-11-19 | Outpatient (CLI) | payer OTHER ==
--- NOTE | 2019-11-19 10:46 | 2DMMODE ---
[place] [address] 2 D/M-MODE ECHOCARDIOGRAM Name: JOLENE RIGGS Room: [facility]#: [id number] Admission: 11/19/19 Attend Phys: Lauren Meyers, Discharge: Date of : 50 Date of Service: 11/19/19 1046 Report #: [id number] THIS REPORT FOR: cc: Rolo Núñez,Rolo Waite,Gerry Tse MD [facility] ~ ADDENDUM APPROVED REPORT Study performed: 11/19/2019 09:13:44 EXAM: Comprehensive 2D, Doppler, and color-flow Echocardiogram Patient Location: Out-Patient BSA: 2.37 HR: 61 bpm BP: 138/78 mmHg Other Information Study Quality: Fair Indications Cardiomyopathy 2D Dimensions IVSd: 16.71 (7-11mm) LVOT Diam: 20.54 (18-24mm) LVDd: 59.34 mm PWd: 14.03 (7-11mm) Ascending Ao: 44.53 (22-36mm) LVDs: 43.94 (25-40mm) Aortic Root: 31.03 mm Volumes Left Atrial Volume (Systole) LA ESV Index: 30.00 mL/m2 Aortic Valve AoV Peak Boo.: 2.02 m/s AO Peak Gr.: 16.37 mmHg LVOT Max P.67 mmHg AO Mean Gr.: 9.70 mmHg LVOT Mean P.65 mmHg LVOT Max V: 0.82 m/s AO V2 VTI: 42.65 cm LVOT Mean V: 0.61 m/s [place] (VTI): 1.48 cm2 LVOT V1 VTI: 19.11 cm AI [place]: 1.33 m/s2 AI PHT: 752.72 [place] [address] 2 D/M-MODE ECHOCARDIOGRAM Name: JOLENE RIGGS Room: [facility]#: [id number] Admission: 11/19/19 Attend Phys: Lauren Meyers, Discharge: Date of : 50 Date of Service: 11/19/19 1046 Report #: [id number] Mitral Valve E/A Ratio: 0.72 MV Decel. Time: 333.58 ms MV E Max Boo.: 0.46 m/s MV PHT: 96.74 ms MVA (PHT): 2.27 cm2 TDI E/Lateral E': 9.20 E/Medial E': 6.57 Medial E' Boo.: 0.07 m/s Lateral E' Boo.: 0.05 m/s Pulmonary Valve PV Peak Boo.: 0.94 m/s PV Peak Gr.: 3.50 mmHg Tricuspid Valve RAP Estimate: 20.00 mmHg TR Peak Gr.: 18.19 mmHg RVSP: 38.19 mmHg PA Pressure: 38.19 mmHg Left Ventricle Left ventricle is mildly dilated. severe hypokinesis of the inferior wall Mild concentric left ventricular hypertrophy. Left ventricular systolic function is moderately decreased. LVEF is 35-40%. Grade I - abnormal relaxation pattern. Right Ventricle The right ventricle is normal size. The right ventricular systolic function is normal. Pacemaker lead is present in the right ventricle. Atria Left atrium is mildly dilated. The right atrium size is normal. Aortic Valve Aortic valve is calcified. Mild aortic regurgitation. Mild aortic stenosis. Mitral Valve The mitral valve is normal in structure. There is no mitral valve regurgitation noted. No evidence of mitral valve stenosis. Tricuspid Valve The tricuspid valve is normal in structure. Trace tricuspid regurgitation. estimated pa pressure 30 [place] [address] 2 D/M-MODE ECHOCARDIOGRAM Name: JOLENE RIGGS Room: [facility]#: [id number] Admission: 11/19/19 Attend Phys: Lauren Meyers, Discharge: Date of : 50 Date of Service: 11/19/19 1046 Report #: [id number] Pulmonic Valve Pulmonic valve is not well visualized. There is no pulmonic valvular regurgitation. Great Vessels The aortic root is normal in size. The ascending aorta is mildly dilated. Aortic arch is dilated. IVC is dilated. Pericardium There is no pericardial effusion. <Conclusion> Mild concentric left ventricular hypertrophy. LVEF is 35-40%. Left atrium is mildly dilated. Mild aortic regurgitation. Mild aortic stenosis. <ELECTRONICALLY SIGNED> By: Gerry Brandt MD, FACC 11/19/19 1046 1046 1046 Gerry Brandt MD, FACC /INF
== END ==
LOC: M.CRD 08:59
PROVIDERS: ATTEND Nurse Practitioner
DX: I06.1 Rheumatic aortic insufficiency (principal); I25.5 Ischemic cardiomyopathy

== ENCOUNTER → 2019-12-25 | Outpatient (CLI) | payer OTHER | LOC: M.RAD 09:44 | PROVIDERS: ATTEND Family Medicine | DX: M17.0 Bilateral primary osteoarthritis of knee (principal); J43.9 Emphysema, unspecified; M25.78 Osteophyte, vertebrae; M47.814 Spondylosis without myelopathy or radiculopathy, thoracic region; M48.04 Spinal stenosis, thoracic region; Z79.899 Other long term (current) drug therapy ==

== ENCOUNTER → 2020-03-17 | Outpatient (CLI) | payer OTHER, MEDICAID ==
[~2020-03-17] MED LIST changes: +ZPAK PO
[2020-03-17 10:01] LABS: DIRECT BILIRUBIN 0.1 mg/dL (<0.1-0.3); TOTAL BILIRUBIN 0.3 mg/dL (<0.1-1.0)
[2020-03-17 10:42] LABS: URINE BILIRUBIN NEGATIVE (Negative); URINE BLOOD TRACE (Negative); URINE CLARITY CLEAR; URINE COLOR YELLOW; URINE GLUCOSE-RANDOM NEGATIVE (Negative); URINE KETONES NEGATIVE (Negative); URINE LEUKOCYTES-REFLEX NEGATIVE (Negative); URINE NITRITE-REFLEX NEGATIVE (Negative); URINE PROTEIN NEGATIVE (Negative); URINE UROBILINOGEN 0.2 E.U./dl (0.2-1.0)
[2020-03-18 02:06] LABS: GLYCOHEMOGLOBIN (HGB A1C) 6.1 % (4.8-5.6)
== END ==
LOC: M.LAB 09:25
PROVIDERS: ATTEND Internal Medicine Cardiovascular Disease
DX: E55.9 Vitamin D deficiency, unspecified (principal); E11.9 Type 2 diabetes mellitus without complications; I25.5 Ischemic cardiomyopathy; Z79.899 Other long term (current) drug therapy

== ENCOUNTER 2020-03-19 19:58 | Emergency (ER) | payer OTHER, MEDICAID ==
[~2020-03-19] VITALS: Ht 182.9 cm; Wt 122.5 kg
[~2020-03-19 19:58] MED LIST changes: -ZPAK PO
[2020-03-19 21:01] VITALS: BP 138/62
[2020-03-20] MEDS ORDERED: ZPAK PO (21:01)
[2020-03-20] MEDS ORDERED: TRAMADOL 50 MG50 MG PO (21:01)
== END 2020-03-19 21:46 | disposition home or self-care (01) ==
LOC: M.ERS 19:58
DX: R04.0 Epistaxis (principal); I48.91 Unspecified atrial fibrillation; F17.210 Nicotine dependence, cigarettes, uncomplicated; E11.9 Type 2 diabetes mellitus without complications; I25.2 Old myocardial infarction; J44.9 Chronic obstructive pulmonary disease, unspecified; Z95.5 Presence of coronary angioplasty implant and graft; Z79.899 Other long term (current) drug therapy

== ENCOUNTER 2020-03-20 20:48 | Emergency (ER) | payer OTHER, MEDICAID ==
[~2020-03-20] VITALS: Ht 182.9 cm; Wt 122.5 kg
[2020-03-20] MEDS ORDERED: ZPAK PO (21:01)
[2020-03-20] MEDS ORDERED: TRAMADOL 50 MG50 MG PO (21:01)
[2020-03-20 23:40] VITALS: BP 142/65
== END 2020-03-20 23:40 | disposition home or self-care (01) ==
LOC: M.ERS 20:48
DX: R04.0 Epistaxis (principal); I48.91 Unspecified atrial fibrillation; I25.10 Atherosclerotic heart disease of native coronary artery without angina pectoris; E11.9 Type 2 diabetes mellitus without complications; I50.22 Chronic systolic (congestive) heart failure; J44.9 Chronic obstructive pulmonary disease, unspecified; F17.210 Nicotine dependence, cigarettes, uncomplicated

== ENCOUNTER 2020-05-31 18:19 | Emergency (ER) | payer OTHER, MEDICAID ==
[~2020-05-31] VITALS: Ht 182.9 cm; Wt 120.2 kg
[~2020-05-31 18:19] MED LIST changes: +ZPAK PO
[2020-05-31] MEDS ORDERED: ASA81BEC PO (18:46)
[2020-05-31] MEDS ORDERED: PRADAXA150 MG PO (18:46)
[2020-05-31] MEDS ORDERED: DIALYVITE VI1250 MCG PO (18:47)
[2020-05-31] MEDS ORDERED: EZETIMIBE10 MG PO (18:49)
[2020-05-31 19:02] LABS: ABSOLUTE BASOPHILS 0.1 thou/uL (0.0-0.2); ABSOLUTE EOSINOPHILS 0.1 thou/uL (0.0-0.7); ABSOLUTE LYMPHOCYTES 2.3 thou/uL (0.8-5.3); ABSOLUTE MONOCYTES 0.8 thou/uL (0.0-1.2); ABSOLUTE NEUTROPHILS 5.2 thou/uL (1.6-8.1); EOSINOPHILS 1.7 %; HEMATOCRIT 41.7 % (42.0-52.0); HEMOGLOBIN 14.1 gm/dL (14.0-18.0); LYMPHOCYTES 27.1 %; MCH 31.3 pg (26.0-34.0); MCHC 33.7 g/dL (28.0-37.0); MCV 92.9 fL (80.0-100.0); MONOCYTES 9.1 %; MPV 7.3 fl. (7.2-11.1); NUCLEATED RBCS 0 /100WBC; PLATELET COUNT* 230 thou/uL (150-400); POLYS 61.1 %; RBC 4.49 mil/uL (4.50-6.00); RDW-CV 14.8 % (10.5-14.5); WBC 8.5 thou/uL (4.0-11.0)
[2020-05-31 19:07] LABS: CALCIUM 9.9 mg/dL (8.5-10.1); CREATININE 1.4 mg/dL (0.6-1.3); POTASSIUM 4.3 mmol/L (3.5-5.1)
[2020-05-31 19:13] LABS: ALBUMIN 3.5 g/dL (3.4-5.0); TOTAL BILIRUBIN 0.3 mg/dL (<0.1-1.0); TOTAL PROTEIN 7.1 g/dL (6.4-8.2)
[2020-05-31 20:43] VITALS: BP 122/53
--- NOTE | 2020-06-02 13:46 | EKG ---
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 : 1950 Requested By: Aga Duval Order Number: [id number] MD: Hakeem Palacios Measurements Intervals [place] Rate: 85 P: 60 [place]: 195 QRS: 10 QRSD: 167 T: 150 QT: 439 QTc: 522 Interpretive Statements Sinus rhythm Left bundle branch block Compared to ECG 01/10/2019 09:38:05 Sinus bradycardia no longer present First degree AV block no longer present Electronically Signed On 06-02-2020 13:45:50 GEOLOGICAL MANAGER by Hakeem Palacios [email or web address] <ELECTRONICALLY SIGNED> By: Hakeem Palacios MD, [facility] 06/02/20 1345 1827 1827 Hakeem Palacios MD, [facility] /EPI
== END 2020-05-31 20:43 | disposition home or self-care (01) ==
LOC: M.ERS 18:19
PROVIDERS: Physician Assistant
DX: I49.01 Ventricular fibrillation (principal); E11.9 Type 2 diabetes mellitus without complications; I25.10 Atherosclerotic heart disease of native coronary artery without angina pectoris; I50.9 Heart failure, unspecified; J44.9 Chronic obstructive pulmonary disease, unspecified; F17.210 Nicotine dependence, cigarettes, uncomplicated

== ENCOUNTER → 2020-07-01 | Outpatient (CLI) | payer OTHER, MEDICAID ==
[~2020-07-01] MED LIST changes: +ASA81BEC PO; +DIALYVITE VI1250 MCG PO; +EZETIMIBE10 MG PO; +PRADAXA150 MG PO
== END ==
LOC: M.LAB 13:41
PROVIDERS: ATTEND Internal Medicine Cardiovascular Disease
DX: I25.5 Ischemic cardiomyopathy (principal); Z79.899 Other long term (current) drug therapy; I48.0 Paroxysmal atrial fibrillation

== ENCOUNTER → 2021-01-02 | Outpatient (CLI) | payer OTHER, MEDICAID ==
[2021-01-02 10:39] LABS: ALBUMIN 4.2 g/dL (3.4-5.0); DIRECT BILIRUBIN 0.1 mg/dL (<0.1-0.3); TOTAL BILIRUBIN 0.6 mg/dL (<0.1-1.0); TOTAL PROTEIN 8.1 g/dL (6.4-8.2)
== END ==
LOC: M.LAB 09:18
PROVIDERS: ATTEND Internal Medicine Cardiovascular Disease
DX: J84.9 Interstitial pulmonary disease, unspecified (principal); I25.5 Ischemic cardiomyopathy; I50.22 Chronic systolic (congestive) heart failure; I48.20 Chronic atrial fibrillation, unspecified; Z79.899 Other long term (current) drug therapy